=== PATIENT | female | born 1950 | race Two or more races ===

== ENCOUNTER 2020-09-13 09:15 | Day surgery (SDC) | payer MEDICARE, OTHER ==
[2020-09-13] MEDS ORDERED: Depo-Medrol 40 MG/ML IM ONE (09:16)
[2020-09-13] MEDS ORDERED: Lactated Ringers 1,000 ML IV ONE (09:16)
[2020-09-13] MEDS ORDERED: Xylocaine 1% Vial 30 ML PF IJ ONE (09:16)
[2020-09-13] MEDS ORDERED: BUPIVACAINE 0.5% VIAL IJ ONE (09:16)
[2020-09-13] MEDS ORDERED: Decadron 4 MG INJ IV ONE (09:16)
[2020-09-13] MEDS ORDERED: DIPRIVAN 200 MG/20 ML IV ONE (11:15)
[2020-09-13] MEDS ORDERED: Ketamine HCl 50 MG/ML ONE (11:17)
--- NOTE | 2020-09-13 12:49 | XRAY ---
Indication: Left piriformis injection Intraoperative fluoroscopy provided for 17 seconds. Single digital spot image obtained prone submitted for interpretation demonstrates needle tip projecting over the expected left piriformis muscle. Small amount of contrast injected for needle tip placement. Correlate with intraoperative findings/report.
--- NOTE | 2020-09-13 12:59 | XRAY ---
Indication: Left greater trochanter injection Intraoperative fluoroscopy provided for 8 seconds. Single digital spot image obtained prone submitted for interpretation demonstrates needle tip projecting just lateral to the left greater trochanter. Small amount of contrast injected for needle tip placement. Correlate with intraoperative findings/report.
--- NOTE | 2020-09-18 08:51 | XRAY ---
8 seconds fluoroscopy time in surgery for injection of the greater trochanter bursa of the left hip.
--- NOTE | 2020-09-18 08:52 | XRAY ---
17 seconds of fluoroscopy was used in surgery for a left piriformis injection.
== END 2020-09-13 11:50 | disposition home or self-care (01) ==
LOC: SDC 09:15 → SDC-PAIN 09:15 → SDC 11:50
PROVIDERS: ATTEND Psychiatry & Neurology Pain Medicine
DX: M79.18 Myalgia, other site (principal); M16.12 Unilateral primary osteoarthritis, left hip; E11.9 Type 2 diabetes mellitus without complications; M54.81 Occipital neuralgia; Z86.73 Personal history of transient ischemic attack (TIA), and cerebral infarction without residual deficits; Z79.899 Other long term (current) drug therapy
CPT/HCPCS: 20552; 20610; 72020; 73501; 77002; 77003; 82947; J1030; J1100; J2001; J2704; Q9966